=== PATIENT | male | born 1995 | race Caucasian/White ===

== ENCOUNTER 2016-07-12 18:33 | Inpatient (IN) | payer OTHER ==
[~2016-07-12] VITALS: Ht 180.3 cm; Wt 63.8 kg
[~2016-07-12 18:33] MED LIST: INSLAN SQ; INSNOV SQ
[2016-07-12] MEDS ORDERED: ONDANSETRON HCL 4 MG/2 ML VIAL IVP ONE (19:00)
[2016-07-12] MEDS ORDERED: SODIUM CHLORIDE 0.9% 1,000 ML IV ONE ×3 (19:00→21:45)
[2016-07-12] MEDS ORDERED: INSULIN REGULAR, HUMAN 100 UNITS/ML IVP ONE (19:00)
[2016-07-12 19:22] LABS: HEMOGLOBIN 18.7 g/dL (13.5-17.5); MEAN CORPUSCULAR HEMOGLOBIN 29.5 pg (26.0-34.0); MEAN CORPUSCULAR HGB CONC 33.9 G/dL (31.0-37.0); MEAN CORPUSCULAR VOLUME 87 fL (80-100); PLATELET COUNT (AUTO) 268 K/uL (150-450); RED BLOOD CELL COUNT(AUTO) 6.32 MIL/uL (4.50-5.90); RED CELL DISTRIBUTION WIDTH 12.9 % (11.5-14.5); WHITE BLOOD COUNT (AUTO) 22.5 K/uL (4.5-11.0)
[2016-07-12 19:31] LABS: ALANINE AMINOTRANSFERASE 73 U/L (12-78); ALBUMIN 4.3 g/dL (3.4-5.0); ANION GAP 30 mmol/L (8-16); ASPARTATE AMINOTRANSFERASE 21 U/L (15-37); CALCIUM, TOTAL 9.7 mg/dL (8.8-10.5); CARBON DIOXIDE 11 mmol/L (22-29); CHLORIDE 87 mmol/L (98-107); CREATININE 1.75 mg/dL (0.60-1.30); GLOMERULAR FILTR. RATE CALC 49 mL/min (>60); POTASSIUM 5.1 mmol/L (3.5-5.1); SODIUM SERUM 128 mmol/L (136-145); TOTAL PROTEIN, SERUM 8.3 g/dL (6.4-8.2); UREA NITROGEN, BLOOD 26 mg/dL (7-18)
[2016-07-12] MEDS ORDERED: INSULIN REGULAR, HUMAN 100 UNITS in SODIUM CHLORIDE 0.9% 99 ML IV SCH ×2 (19:45)
[2016-07-12 19:58] LABS: BAND NEUTROPHILS % (MANUAL) 22 % (1-5); LYMPHOCYTES % (MANUAL) 12 % (22-44); TOTAL CELLS COUNTED 100
[2016-07-12] MEDS ORDERED: METOCLOPRAMIDE HCL 5 MG/ML 2 ML VIAL IVP ONE (20:00)
[2016-07-12 20:07] LABS: GLUCOSE,POINT OF CARE 399 MG/DL (70-110)
[2016-07-12 21:16] LABS: GLUCOSE,POINT OF CARE 338 MG/DL (70-110)
[2016-07-12 21:26] LABS: APPEARANCE,URINE CLOUDY (CLEAR); GLUCOSE, URINE (UA) >=1000 mg/dL (NEGATIVE); KETONES,URINE >=80 mg/dL (NEGATIVE); LEUKOCYTE ESTERASE ,URINE NEGATIVE (NEGATIVE); OCCULT BLOOD,URINE TRACE (NEGATIVE); PH,URINE 5.5 (5.0-8.0); PROTEIN,URINE SEE CONFIRM (NEGATIVE)
[2016-07-12 21:27] LABS: ADD UA MICROSCOPIC YES
[2016-07-12] MEDS ORDERED: ONDANSETRON HCL 4 MG/2 ML VIAL IVP PRN (21:45)
[2016-07-12 21:50] LABS: SULFOSALICYLIC ACID,URINE 2+ (Negative)
[2016-07-12 21:52] LABS: SQUAMOUS EPITHELIAL CELL,UR Few /LPF (None Seen)
[2016-07-12 21:54] LABS: RBC,URINE 0-2 /HPF (0-2); WBC,URINE 0-2 /HPF (0-5)
[2016-07-12 22:22] LABS: GLUCOSE,POINT OF CARE 288 MG/DL (70-110)
[2016-07-12 23:26] LABS: GLUCOSE,POINT OF CARE 257 MG/DL (70-110)
[2016-07-13 00:27] LABS: GLUCOSE,POINT OF CARE 229 MG/DL (70-110)
[2016-07-13 01:57] LABS: GLUCOSE,POINT OF CARE 174 MG/DL (70-110)
[2016-07-13 04:22] LABS: GLUCOSE,POINT OF CARE 130 MG/DL (70-110)
[2016-07-13] MEDS ORDERED: POTASSIUM CHLORIDE 40 MEQ in SODIUM CHLORIDE 0.45% 1,000 ML IV PRN (04:28)
[2016-07-13] MEDS ORDERED: DEXTROSE 5%-0.45% SODIUM CHL 1,000 ML IV PRN (04:28)
[2016-07-13] MEDS ORDERED: SODIUM CHLORIDE 0.45% 1,000 ML IV PRN (04:28)
[2016-07-13] MEDS ORDERED: POTASSIUM CHL 20 MEQ/0.45% NS 1,000 ML IV PRN (04:28)
[2016-07-13] MEDS ORDERED: INSULIN REGULAR, HUMAN 100 UNITS in SODIUM CHLORIDE 0.9% 99 ML IV PRN ×2 (04:28)
[2016-07-13] MEDS ORDERED: SODIUM CHLORIDE 0.9% 1,000 ML IV SCH (04:28)
[2016-07-13] MEDS ORDERED: DEXTROSE 50%-WATER 25 GM/50 ML SYRINGE IVP PRN ×4 (04:30→18:15)
[2016-07-13] MEDS ORDERED: INSULIN REGULAR, HUMAN 100 UNITS/ML IVP PRN (04:30)
[2016-07-13 04:53] LABS: MEAN CORPUSCULAR HEMOGLOBIN 28.7 pg (26.0-34.0); MEAN CORPUSCULAR HGB CONC 32.7 G/dL (31.0-37.0); MEAN CORPUSCULAR VOLUME 88 fL (80-100); PLATELET COUNT (AUTO) 269 K/uL (150-450); RED BLOOD CELL COUNT(AUTO) 5.24 MIL/uL (4.50-5.90); RED CELL DISTRIBUTION WIDTH 12.2 % (11.5-14.5); WHITE BLOOD COUNT (AUTO) 24.8 K/uL (4.5-11.0)
[2016-07-13 05:09] LABS: ANION GAP 10 mmol/L (8-16); CALCIUM, TOTAL 8.6 mg/dL (8.8-10.5); CARBON DIOXIDE 20 mmol/L (22-29); CHLORIDE 103 mmol/L (98-107); CREATININE 1.13 mg/dL (0.60-1.30); GLOMERULAR FILTR. RATE CALC > 60 mL/min (>60); POTASSIUM 4.2 mmol/L (3.5-5.1); SODIUM SERUM 133 mmol/L (136-145); UREA NITROGEN, BLOOD 24 mg/dL (7-18)
[2016-07-13] MEDS ORDERED: INSULIN ASPART 100 UNITS/ML SQ PRN ×2 (05:15→18:15)
[2016-07-13] MEDS ORDERED: MAGNESIUM HYDROXIDE SUSPENSION 30 ML UDCUP PO PRN (05:30)
[2016-07-13] MEDS ORDERED: ONDANSETRON HCL 4 MG/2 ML VIAL IVP PRN (05:30)
[2016-07-13] MEDS ORDERED: ACETAMINOPHEN 325 MG TABLET PO PRN (05:30)
[2016-07-13] MEDS ORDERED: 0.9% SODIUM CHLORIDE 10 ML SYRINGE IVP PRN (05:30)
[2016-07-13 05:52] LABS: BAND NEUTROPHILS % (MANUAL) 8 % (1-5); BASOPHILS % (MANUAL) 1 % (0-2); LYMPHOCYTES % (MANUAL) 15 % (22-44); TOTAL CELLS COUNTED 100
[2016-07-13 06:02] LABS: GLUCOSE,POINT OF CARE 76 MG/DL (70-110)
[2016-07-13] MEDS: CefTRIAXone 1 GM/DEXTROSE 50 ML IV SCH (06:14)
[2016-07-13] MEDS: INSULIN DETEMIR 100 UNITS/ML SQ SCH ×2 (08:00→21:41)
[2016-07-13 08:16] LABS: GLUCOSE,POINT OF CARE 144 MG/DL (70-110)
[2016-07-13] MEDS: DOCUSATE SODIUM 100 MG CAPSULE PO SCH ×2 (09:38→20:28)
[2016-07-13] MEDS: PANTOPRAZOLE SODIUM 40 MG/VIAL IVP SCH (09:38)
[2016-07-13 09:46] LABS: GLUCOSE,POINT OF CARE 111 MG/DL (70-110)
[2016-07-13 14:42] LABS: GLUCOSE,POINT OF CARE 66 MG/DL (70-110)
[2016-07-13 14:56] LABS: GLUCOSE,POINT OF CARE 157 MG/DL (70-110)
[2016-07-13 16:12] LABS: GLUCOSE,POINT OF CARE 116 MG/DL (70-110)
[2016-07-13 16:23] LABS: HEMATOCRIT 43.5 % (41-53); HEMOGLOBIN 14.6 g/dL (13.5-17.5); MEAN CORPUSCULAR HEMOGLOBIN 29.3 pg (26.0-34.0); MEAN CORPUSCULAR HGB CONC 33.5 G/dL (31.0-37.0); MEAN CORPUSCULAR VOLUME 87 fL (80-100); PLATELET COUNT (AUTO) 242 K/uL (150-450); RED BLOOD CELL COUNT(AUTO) 4.98 MIL/uL (4.50-5.90); RED CELL DISTRIBUTION WIDTH 12.3 % (11.5-14.5)
[2016-07-13 16:34] LABS: ANION GAP 11 mmol/L (8-16); CALCIUM, TOTAL 8.6 mg/dL (8.8-10.5); CARBON DIOXIDE 22 mmol/L (22-29); CHLORIDE 106 mmol/L (98-107); CREATININE 0.81 mg/dL (0.60-1.30); GLOMERULAR FILTR. RATE CALC > 60 mL/min (>60); POTASSIUM 3.5 mmol/L (3.5-5.1); SODIUM SERUM 139 mmol/L (136-145); UREA NITROGEN, BLOOD 10 mg/dL (7-18)
[2016-07-13 16:40] LABS: ALANINE AMINOTRANSFERASE 43 U/L (12-78); ALBUMIN 3.1 g/dL (3.4-5.0); ASPARTATE AMINOTRANSFERASE 15 U/L (15-37); BILIRUBIN,TOTAL 0.6 mg/dL (0.1-1.0); TOTAL PROTEIN, SERUM 6.1 g/dL (6.4-8.2)
[2016-07-13] MEDS: SODIUM CHLORIDE 0.9% 1,000 ML IV SCH ×3 (16:51→22:16)
[2016-07-13 16:55] LABS: PHOSPHORUS 1.5 mg/dL (2.5-4.9)
[2016-07-13 17:01] LABS: BAND NEUTROPHILS % (MANUAL) 25 % (1-5); LYMPHOCYTES % (MANUAL) 13 % (22-44); RBC MORPHOLOGY COMMENT NORMAL RBC MORPH; TOTAL CELLS COUNTED 100
[2016-07-13] MEDS: OxyCODONE HCL/ACETAMINOPHEN 5-325 MG TABLET PO PRN (20:28)
[2016-07-13 20:32] LABS: GLUCOSE,POINT OF CARE 149 MG/DL (70-110)
[2016-07-13] MEDS ORDERED: INSULIN DETEMIR 100 UNITS/ML SQ SCH (21:00)
[2016-07-14] MEDS: OxyCODONE HCL/ACETAMINOPHEN 5-325 MG TABLET PO PRN ×5 (02:00→18:00)
[2016-07-14 02:16] LABS: GLUCOSE,POINT OF CARE 193 MG/DL (70-110)
[2016-07-14] MEDS: SODIUM CHLORIDE 0.9% 1,000 ML IV SCH ×3 (05:50→18:54)
[2016-07-14 06:02] LABS: GLUCOSE,POINT OF CARE 229 MG/DL (70-110)
[2016-07-14] MEDS: CefTRIAXone 1 GM/DEXTROSE 50 ML IV SCH (06:27)
[2016-07-14 07:19] LABS: BASOPHILS # (AUTO) 0.03 K/uL (0.00-0.20); BASOPHILS % (AUTO) 0.3 % (0.0-2.0); EOSINOPHILS # (AUTO) 0.05 K/uL (0.00-0.70); EOSINOPHILS % (AUTO) 0.42 % (1.0-6.0); HEMATOCRIT 38.5 % (41-53); HEMOGLOBIN 13.1 g/dL (13.5-17.5); LYMPHOCYTES # (AUTO) 2.7 K/uL (1.0-4.8); LYMPHOCYTES % (AUTO) 22.8 % (22.0-44.0); MEAN CORPUSCULAR HEMOGLOBIN 29.6 pg (26.0-34.0); MEAN CORPUSCULAR VOLUME 87 fL (80-100); MONOCYTES # (AUTO) 0.5 K/uL (0.1-1.0); MONOCYTES % (AUTO) 4.2 % (2.0-9.0); NEUTROPHILS # (AUTO) 8.5 K/uL (1.8-7.7); NEUTROPHILS % (AUTO) 72.3 % (40.0-70.0); PLATELET COUNT (AUTO) 181 K/uL (150-450); RED BLOOD CELL COUNT(AUTO) 4.42 MIL/uL (4.50-5.90); RED CELL DISTRIBUTION WIDTH 12.5 % (11.5-14.5); WHITE BLOOD COUNT (AUTO) 11.8 K/uL (4.5-11.0)
[2016-07-14 07:27] LABS: GLUCOSE,POINT OF CARE 266 MG/DL (70-110)
[2016-07-14] MEDS: INSULIN DETEMIR 100 UNITS/ML SQ SCH ×2 (07:36→21:43)
[2016-07-14] MEDS: DOCUSATE SODIUM 100 MG CAPSULE PO SCH ×2 (08:13→21:43)
[2016-07-14] MEDS: PANTOPRAZOLE SODIUM 40 MG/VIAL IVP SCH (08:13)
[2016-07-14 10:37] LABS: GLUCOSE COMMENT 1 Doctor Notified; GLUCOSE,POINT OF CARE 279 MG/DL (70-110)
[2016-07-14 12:01] LABS: GLUCOSE,POINT OF CARE 189 MG/DL (70-110)
[2016-07-14 13:16] LABS: GLUCOSE,POINT OF CARE 205 MG/DL (70-110)
[2016-07-14 15:33] VITALS: BP 123/61
[2016-07-14 15:57] LABS: GLUCOSE,POINT OF CARE 281 MG/DL (70-110)
[2016-07-14] MEDS ORDERED: PNEUMOCOCCAL VACCINE POLYVALENT 0.5 ML VIAL [PPSV23] IM ONE (16:15)
[2016-07-14 17:37] LABS: GLUCOSE COMMENT 1 Received Meds; GLUCOSE,POINT OF CARE 159 MG/DL (70-110)
[2016-07-14] MEDS: INSULIN REGULAR, HUMAN 100 UNITS/ML SQ PRN ×2 (17:45→21:40)
[2016-07-14 21:01] LABS: GLUCOSE,POINT OF CARE 147 MG/DL (70-110)
[2016-07-14 21:59] VITALS: BP 116/76
[2016-07-15] MEDS: OxyCODONE HCL/ACETAMINOPHEN 5-325 MG TABLET PO PRN ×5 (00:12→14:22)
[2016-07-15 00:17] VITALS: BP 127/67
[2016-07-15 00:33] LABS: EOSINOPHILS % (AUTO) 0.8 % (1.0-6.0); HEMATOCRIT 38.3 % (41-53); HEMOGLOBIN 12.6 g/dL (13.5-17.5); LYMPHOCYTES # (AUTO) 3.5 K/uL (1.0-4.8); LYMPHOCYTES % (AUTO) 41.1 % (22.0-44.0); MEAN CORPUSCULAR HGB CONC 32.9 G/dL (31.0-37.0); MEAN CORPUSCULAR VOLUME 88 fL (80-100); MONOCYTES # (AUTO) 0.5 K/uL (0.1-1.0); MONOCYTES % (AUTO) 5.5 % (2.0-9.0); NEUTROPHILS # (AUTO) 4.4 K/uL (1.8-7.7); NEUTROPHILS % (AUTO) 51.6 % (40.0-70.0); PLATELET COUNT (AUTO) 182 K/uL (150-450); RED BLOOD CELL COUNT(AUTO) 4.34 MIL/uL (4.50-5.90); RED CELL DISTRIBUTION WIDTH 12.3 % (11.5-14.5); WHITE BLOOD COUNT (AUTO) 8.5 K/uL (4.5-11.0)
[2016-07-15 00:44] LABS: MAGNESIUM 1.8 mg/dL (1.80-2.40); PHOSPHORUS 2.7 mg/dL (2.5-4.9)
[2016-07-15] MEDS: SODIUM CHLORIDE 0.9% 1,000 ML IV SCH (04:07)
[2016-07-15 04:15] VITALS: BP 123/68
[2016-07-15] MEDS: CefTRIAXone 1 GM/DEXTROSE 50 ML IV SCH (05:46)
[2016-07-15 05:52] LABS: GLUCOSE,POINT OF CARE 54 MG/DL (70-110)
[2016-07-15 06:25] LABS: BASOPHILS % (AUTO) 0.5 % (0.0-2.0); EOSINOPHILS % (AUTO) 0.8 % (1.0-6.0); HEMATOCRIT 37.6 % (41-53); HEMOGLOBIN 12.2 g/dL (13.5-17.5); LYMPHOCYTES # (AUTO) 3.3 K/uL (1.0-4.8); LYMPHOCYTES % (AUTO) 39.2 % (22.0-44.0); MEAN CORPUSCULAR HEMOGLOBIN 29.1 pg (26.0-34.0); MEAN CORPUSCULAR HGB CONC 32.6 G/dL (31.0-37.0); MEAN CORPUSCULAR VOLUME 89 fL (80-100); MONOCYTES # (AUTO) 0.5 K/uL (0.1-1.0); MONOCYTES % (AUTO) 5.6 % (2.0-9.0); NEUTROPHILS # (AUTO) 4.6 K/uL (1.8-7.7); NEUTROPHILS % (AUTO) 53.9 % (40.0-70.0); PLATELET COUNT (AUTO) 172 K/uL (150-450); WHITE BLOOD COUNT (AUTO) 8.5 K/uL (4.5-11.0)
[2016-07-15 06:31] LABS: GLUCOSE,POINT OF CARE 162 MG/DL (70-110)
[2016-07-15 06:52] LABS: ALANINE AMINOTRANSFERASE 27 U/L (12-78); ALBUMIN 2.5 g/dL (3.4-5.0); AMYLASE 56 U/L (25-115); ANION GAP 5 mmol/L (8-16); ASPARTATE AMINOTRANSFERASE 10 U/L (15-37); BILIRUBIN,TOTAL 0.2 mg/dL (0.1-1.0); CALCIUM, TOTAL 8.5 mg/dL (8.8-10.5); CARBON DIOXIDE 32 mmol/L (22-29); CHLORIDE 107 mmol/L (98-107); CREATININE 0.38 mg/dL (0.60-1.30); GLOMERULAR FILTR. RATE CALC > 60 mL/min (>60); PHOSPHORUS 3.5 mg/dL (2.5-4.9); SODIUM SERUM 144 mmol/L (136-145); TOTAL PROTEIN, SERUM 5.5 g/dL (6.4-8.2); UREA NITROGEN, BLOOD 7 mg/dL (7-18)
[2016-07-15 07:10] LABS: POTASSIUM 2.8 mmol/L (3.5-5.1)
[2016-07-15 08:00] VITALS: BP 110/48
[2016-07-15] MEDS: DOCUSATE SODIUM 100 MG CAPSULE PO SCH (08:14)
[2016-07-15] MEDS: PANTOPRAZOLE SODIUM 40 MG/VIAL IVP SCH (08:15)
[2016-07-15] MEDS: INSULIN DETEMIR 100 UNITS/ML SQ SCH (08:17)
[2016-07-15] MEDS ORDERED: MAGNESIUM SULFATE 4 GM/WATER 100 ML IV PRN (08:45)
[2016-07-15] MEDS ORDERED: MAGNESIUM SULFATE 2 GM in DEXTROSE 5%-WATER 50 ML IV PRN (08:45)
[2016-07-15] MEDS ORDERED: POTASSIUM CHLORIDE 20 MEQ ER TABLET PO PRN ×2 (08:45)
[2016-07-15 08:56] LABS: GLUCOSE COMMENT 1 Received Meds; GLUCOSE,POINT OF CARE 141 MG/DL (70-110)
[2016-07-15] MEDS: MAGNESIUM OXIDE 400 MG TABLET PO PRN ×2 (09:26→15:04)
[2016-07-15] MEDS: POTASSIUM CHL 10 MEQ/WATER 50 ML IV PRN ×4 (09:26→14:20)
[2016-07-15 11:08] VITALS: BP 133/86
[2016-07-15 12:12] LABS: GLUCOSE,POINT OF CARE 117 MG/DL (70-110)
[2016-07-15 15:37] LABS: GLUCOSE,POINT OF CARE 97 MG/DL (70-110)
[2016-07-15 16:08] VITALS: BP 127/78
[2016-07-15 18:37] LABS: GLUCOSE COMMENT 1 Received Meds; GLUCOSE,POINT OF CARE 53 MG/DL (70-110)
[2016-07-15 18:56] LABS: GLUCOSE,POINT OF CARE 160 MG/DL (70-110)
[2016-07-15 19:05] VITALS: BP 136/85
== END 2016-07-15 20:06 | disposition left against medical advice (07) | DRG 420 ==
LOC: EMS 18:35 → 4E 07-14 13:19 → 6N 07-15 18:17
PROVIDERS: ADMIT Internal Medicine; ATTEND Internal Medicine
DX: E13.10 Other specified diabetes mellitus with ketoacidosis without coma (principal); G93.40 Encephalopathy, unspecified; K85.90 Acute pancreatitis without necrosis or infection, unspecified; R65.10 Systemic inflammatory response syndrome (SIRS) of non-infectious origin without acute organ dysfunction; E86.0 Dehydration; F15.90 Other stimulant use, unspecified, uncomplicated; E87.1 Hypo-osmolality and hyponatremia; F17.210 Nicotine dependence, cigarettes, uncomplicated; Z79.4 Long term (current) use of insulin; Z98.890 Other specified postprocedural states; Z28.21 Immunization not carried out because of patient refusal
CPT/HCPCS: 51702; 70450; 82948; 82962; 83735; 84100; 84132; 87081; 87086; 93005; 96361; 96365; 96366; 96374; 96375; 99291; C9113; G0480; J0696; J1815; J2405; J2765; J3480; J7030; J7050

== ENCOUNTER 2016-08-20 15:30 | Inpatient (IN) | payer OTHER ==
[~2016-08-20] VITALS: Ht 162.6 cm; Wt 60.8 kg
[2016-08-20 15:53] LABS: BASOPHILS % (AUTO) 0.8 % (0.0-2.0); EOSINOPHILS % (AUTO) 1.7 % (1.0-6.0); HEMATOCRIT 40.1 % (41-53); HEMOGLOBIN 13.2 g/dL (13.5-17.5); LYMPHOCYTES # (AUTO) 2.9 K/uL (1.0-4.8); LYMPHOCYTES % (AUTO) 45.3 % (22.0-44.0); MEAN CORPUSCULAR HEMOGLOBIN 28.7 pg (26.0-34.0); MEAN CORPUSCULAR HGB CONC 32.9 G/dL (31.0-37.0); MEAN CORPUSCULAR VOLUME 87 fL (80-100); MONOCYTES # (AUTO) 0.4 K/uL (0.1-1.0); MONOCYTES % (AUTO) 5.6 % (2.0-9.0); NEUTROPHILS % (AUTO) 46.6 % (40.0-70.0); PLATELET COUNT (AUTO) 236 K/uL (150-450); RED BLOOD CELL COUNT(AUTO) 4.61 MIL/uL (4.50-5.90); RED CELL DISTRIBUTION WIDTH 13.5 % (11.5-14.5); WHITE BLOOD COUNT (AUTO) 6.4 K/uL (4.5-11.0)
[2016-08-20 16:00] LABS: ANION GAP 6 mmol/L (8-16); CALCIUM, TOTAL 8.5 mg/dL (8.8-10.5); CARBON DIOXIDE 28 mmol/L (22-29); CHLORIDE 104 mmol/L (98-107); CREATININE 0.71 mg/dL (0.60-1.30); GLOMERULAR FILTR. RATE CALC > 60 mL/min (>60); POTASSIUM 3.9 mmol/L (3.5-5.1); SODIUM SERUM 138 mmol/L (136-145); UREA NITROGEN, BLOOD 9 mg/dL (7-18)
[2016-08-20 16:06] LABS: ALANINE AMINOTRANSFERASE 38 U/L (12-78); ASPARTATE AMINOTRANSFERASE 28 U/L (15-37); BILIRUBIN,TOTAL 0.3 mg/dL (0.1-1.0); CREATINE KINASE, TOTAL 56 U/L (39-308); TOTAL PROTEIN, SERUM 5.9 g/dL (6.4-8.2)
[2016-08-20 16:57] LABS: APPEARANCE,URINE CLEAR (CLEAR); GLUCOSE, URINE (UA) >=1000 mg/dL (NEGATIVE); KETONES,URINE NEGATIVE (NEGATIVE); LEUKOCYTE ESTERASE ,URINE NEGATIVE (NEGATIVE); OCCULT BLOOD,URINE NEGATIVE (NEGATIVE); PROTEIN,URINE NEGATIVE (NEGATIVE)
[2016-08-20 16:59] LABS: ADD UA MICROSCOPIC YES
[2016-08-20 17:00] LABS: RBC,URINE None Seen /HPF (0-2); WBC,URINE 0-2 /HPF (0-5)
[2016-08-20] MEDS ORDERED: GADOBUTROL 1 MMOL/ML 10 ML VIAL IVP ONE (17:32)
[2016-08-20 18:57] LABS: GLUCOSE,POINT OF CARE 172 MG/DL (70-110)
[2016-08-20] MEDS ORDERED: SODIUM CHLORIDE 0.9% 1,000 ML IV ONE (19:00)
[2016-08-20] MEDS ORDERED: AMMONIA 1 EA AMP IH ONE (19:00)
[2016-08-20] MEDS ORDERED: HYDROCODONE/ACETAMINOPHEN 5-325 MG TABLET PO PRN ×2 (20:00)
[2016-08-20] MEDS ORDERED: OxyCODONE HCL/ACETAMINOPHEN 5-325 MG TABLET PO PRN (20:00)
[2016-08-20] MEDS ORDERED: ACETAMINOPHEN 325 MG TABLET PO PRN ×2 (20:00→20:15)
[2016-08-20] MEDS ORDERED: 0.9% SODIUM CHLORIDE 10 ML SYRINGE IVP PRN (20:15)
[2016-08-20] MEDS ORDERED: ONDANSETRON HCL 4 MG/2 ML VIAL IVP PRN (20:15)
[2016-08-20] MEDS: SODIUM CHLORIDE 0.45% 1,000 ML IV SCH (20:45)
[2016-08-20] MEDS: DOCUSATE SODIUM 100 MG CAPSULE PO SCH (21:00)
[2016-08-20 22:58] VITALS: BP 121/71
[2016-08-20 23:45] VITALS: BP 123/78
[2016-08-21 04:48] VITALS: BP 133/85
[2016-08-21] MEDS ORDERED: DEXTROSE 50%-WATER 25 GM/50 ML SYRINGE IVP PRN (05:30)
[2016-08-21] MEDS ORDERED: INSULIN ASPART 100 UNITS/ML SQ PRN (05:30)
[2016-08-21] MEDS: SODIUM CHLORIDE 0.45% 1,000 ML IV SCH (06:03)
[2016-08-21 06:37] LABS: GLUCOSE,POINT OF CARE 212 MG/DL (70-110)
[2016-08-21 07:42] VITALS: BP 131/81
[2016-08-21] MEDS: HEPARIN SODIUM,PORCINE 5,000 UNITS/ML VIAL SQ SCH ×2 (08:00)
[2016-08-21] MEDS: DOCUSATE SODIUM 100 MG CAPSULE PO SCH (09:00)
== END 2016-08-21 10:25 | disposition left against medical advice (07) | DRG 52 ==
LOC: EMS 15:31 → 5N 21:30
PROVIDERS: ADMIT Internal Medicine; ATTEND Internal Medicine
DX: G93.41 Metabolic encephalopathy (principal); E11.65 Type 2 diabetes mellitus with hyperglycemia; R41.82 Altered mental status, unspecified; Y99.8 Other external cause status; F15.10 Other stimulant abuse, uncomplicated; T50.905A Adverse effect of unspecified drugs, medicaments and biological substances, initial encounter; F17.210 Nicotine dependence, cigarettes, uncomplicated; Z53.21 Procedure and treatment not carried out due to patient leaving prior to being seen by health care provider; Z79.4 Long term (current) use of insulin; Z87.81 Personal history of (healed) traumatic fracture; Z98.890 Other specified postprocedural states; Z71.6 Tobacco abuse counseling; Z71.51 Drug abuse counseling and surveillance of drug abuser; Z91.19 Patient's noncompliance with other medical treatment and regimen; Y92.89 Other specified places as the place of occurrence of the external cause; Y93.89 Activity, other specified
CPT/HCPCS: 51702; 70450; 70553; 82962; 93005; 96360; 96361; 99291; A9585; G0480; J1644; J7030

== ENCOUNTER 2017-12-23 15:31 | Emergency (ER) | payer OTHER ==
[~2017-12-23] VITALS: Ht 175.3 cm; Wt 63.6 kg
[2017-12-23 15:48] LABS: GLUCOSE,POINT OF CARE > 600 MG/DL (70-110)
[2017-12-23] MEDS ORDERED: INSU100V SQ ×2 (15:48)
[2017-12-23 17:17] LABS: BASOPHILS % (AUTO) 1.7 % (0.0-2.0); EOSINOPHILS % (AUTO) 1.4 % (1.0-6.0); HEMOGLOBIN 12.4 g/dL (13.5-17.5); LYMPHOCYTES # (AUTO) 2.9 K/uL (1.0-4.8); LYMPHOCYTES % (AUTO) 43.9 % (22.0-44.0); MEAN CORPUSCULAR HEMOGLOBIN 31.9 pg (26.0-34.0); MEAN CORPUSCULAR HGB CONC 34.4 G/dL (31.0-37.0); MEAN CORPUSCULAR VOLUME 93 fL (80-100); MONOCYTES # (AUTO) 0.5 K/uL (0.1-1.0); MONOCYTES % (AUTO) 6.9 % (2.0-9.0); NEUTROPHILS # (AUTO) 3.1 K/uL (1.8-7.7); NEUTROPHILS % (AUTO) 46.1 % (40.0-70.0); PLATELET COUNT (AUTO) 265 K/uL (150-450); RED BLOOD CELL COUNT(AUTO) 3.89 MIL/uL (4.50-5.90); RED CELL DISTRIBUTION WIDTH 12.5 % (11.5-14.5)
[2017-12-23 17:20] LABS: APPEARANCE,URINE CLEAR (CLEAR); BILIRUBIN,URINE NEGATIVE (NEGATIVE); GLUCOSE, URINE (UA) >=1000 mg/dL (NEGATIVE); KETONES,URINE NEGATIVE (NEGATIVE); LEUKOCYTE ESTERASE ,URINE NEGATIVE (NEGATIVE); NITRATE,URINE NEGATIVE (NEGATIVE); OCCULT BLOOD,URINE NEGATIVE (NEGATIVE); PROTEIN,URINE NEGATIVE (NEGATIVE); UROBILINOGEN,URINE 0.2 mg/dL (<=1.0)
[2017-12-23] MEDS ORDERED: HYDROCODONE/ACETAMINOPHEN 5-325 MG TABLET PO ONE (17:30)
[2017-12-23] MEDS ORDERED: ONDANSETRON HCL 4 MG/2 ML VIAL IVP ONE (17:30)
[2017-12-23] MEDS ORDERED: SODIUM CHLORIDE 0.9% 1,000 ML IV ONE (17:30)
[2017-12-23 17:34] LABS: INR 0.9 (0.9-1.1); PROTHROMBIN TIME 9.3 SEC (9.4-11.6)
[2017-12-23 17:42] LABS: B-TYPE NATRIURETIC PEPTIDE 17 pg/mL (0-100)
[2017-12-23 17:54] LABS: ALANINE AMINOTRANSFERASE 52 U/L (12-78); ALBUMIN 3.2 g/dL (3.4-5.0); ALKALINE PHOSPHATASE 106 U/L (46-116); ANION GAP 10 mmol/L (8-16); ASPARTATE AMINOTRANSFERASE 36 U/L (15-37); BILIRUBIN,TOTAL 0.2 mg/dL (0.1-1.0); CALCIUM, TOTAL 8.7 mg/dL (8.8-10.5); CARBON DIOXIDE 24 mmol/L (22-29); CHLORIDE 100 mmol/L (98-107); CREATINE KINASE MB 0.7 ng/mL (0-5); CREATINE KINASE, TOTAL 361 U/L (39-308); CREATININE 1.24 mg/dL (0.60-1.30); GLOMERULAR FILTR. RATE CALC > 60 mL/min (>60); POTASSIUM 4.2 mmol/L (3.5-5.1); SODIUM SERUM 134 mmol/L (136-145); TOTAL PROTEIN, SERUM 6.4 g/dL (6.4-8.2); UREA NITROGEN, BLOOD 17 mg/dL (7-18)
[2017-12-23 17:58] LABS: GLUCOSE,RANDOM 625 mg/dL (70-110)
[2017-12-23] MEDS ORDERED: INSULIN REGULAR, HUMAN 100 UNITS/ML IVP ONE (18:00)
[2017-12-23 18:04] LABS: BACTERIA,URINE None Seen /HPF (None Seen); RBC,URINE None Seen /HPF (0-2); SQUAMOUS EPITHELIAL CELL,UR Rare /LPF (None Seen); WBC,URINE None Seen /HPF (0-5)
[2017-12-23 18:08] LABS: GLUCOSE,POINT OF CARE 343 MG/DL (70-110)
[2017-12-23 18:11] LABS: ACETONE,BLOOD NEGATIVE (NEGATIVE)
[2017-12-23] MEDS ORDERED: KETOROLAC TROMETHAMINE 30 MG/ML VIAL IVP ONE (19:00)
[2017-12-23 19:25] VITALS: BP 124/82
[2017-12-23 19:53] LABS: GLUCOSE,POINT OF CARE 251 MG/DL (70-110)
== END 2017-12-23 20:09 | disposition home or self-care (01) ==
LOC: EMS 15:32
DX: S00.83XA Contusion of other part of head, initial encounter (principal); E10.65 Type 1 diabetes mellitus with hyperglycemia; F15.90 Other stimulant use, unspecified, uncomplicated; F17.210 Nicotine dependence, cigarettes, uncomplicated; Z79.4 Long term (current) use of insulin; W51.XXXA Accidental striking against or bumped into by another person, initial encounter; Y93.89 Activity, other specified; Y92.69 Other specified industrial and construction area as the place of occurrence of the external cause; Y99.0 Civilian activity done for income or pay
CPT/HCPCS: 36415; 70486; 71045; 80053; 81001; 82009; 82550; 82553; 82962; 83880; 84484; 85025; 85610; 85730; 93005; 96374; 96375; 99285; J1815; J1885; J2405; J7030; 96361